=== PATIENT | male | born 1965 | race Caucasian/White ===

== ENCOUNTER 2020-10-19 12:14 | Day surgery (SDC) | payer BC ==
[2020-10-19] MEDS ORDERED: LIDOCAINE HCL 2% 100 MG/5 ML IJ ONE (12:15)
[2020-10-19] MEDS ORDERED: Decadron 4 MG INJ IV ONE (12:15)
[2020-10-19] MEDS ORDERED: DIPRIVAN 200 MG/20 ML IV ONE ×2 (14:13→14:49)
[2020-10-19] MEDS ORDERED: Versed 2 MG/2 ML Injection ONE (14:17)
--- NOTE | 2020-10-19 15:28 | XRAY ---
Indication: Left C3-C5 MBB. Intraoperative fluoroscopy provided for 25 seconds. 3 digital spot images submitted for interpretation demonstrates posterior needle tips projecting over the expected left C3-C5 nerve roots. Correlate with intraoperative findings/report.
[2020-10-19] MEDS ORDERED: Lactated Ringers 1,000 ML IV ONE (15:57)
--- NOTE | 2020-10-19 17:40 | XRAY ---
25 seconds of fluoroscopy was used in surgery for a left C3-C4, C4-C5 MBB.
== END 2020-10-19 15:06 | disposition home or self-care (01) ==
LOC: SDC-PAIN 12:14
PROVIDERS: ATTEND Psychiatry & Neurology Pain Medicine
DX: M47.812 Spondylosis without myelopathy or radiculopathy, cervical region (principal); M19.90 Unspecified osteoarthritis, unspecified site; F32.9 Major depressive disorder, single episode, unspecified; F41.9 Anxiety disorder, unspecified; Z79.899 Other long term (current) drug therapy
CPT/HCPCS: 64490; 64491; 72040; 77002; J1100; J2250; J2704

== ENCOUNTER 2020-12-14 10:49 | Day surgery (SDC) | payer BC ==
[2020-12-14] MEDS ORDERED: BUPIVACAINE 0.5% VIAL IJ ONE (10:50)
[2020-12-14] MEDS ORDERED: Decadron 4 MG INJ IV ONE (10:50)
[2020-12-14] MEDS ORDERED: Lactated Ringers 1,000 ML IV ONE (11:43)
[2020-12-14] MEDS ORDERED: DIPRIVAN 200 MG/20 ML IV ONE (12:28)
--- NOTE | 2020-12-14 13:47 | XRAY ---
54 seconds fluoroscopy time in surgery for left C3-C5 MBB.
--- NOTE | 2020-12-14 13:48 | XRAY ---
Indication: Left C3-C5 MBB. Intraoperative fluoroscopy provided for 54 seconds. 4 digital spot image submitted for interpretation demonstrates posterior needle tips projecting over the expected left C3-C5 nerve roots. Correlate with intraoperative findings/report.
== END 2020-12-14 13:05 | disposition home or self-care (01) ==
LOC: SDC-PAIN 10:49
PROVIDERS: ATTEND Psychiatry & Neurology Pain Medicine
DX: M47.812 Spondylosis without myelopathy or radiculopathy, cervical region (principal); Z79.899 Other long term (current) drug therapy
CPT/HCPCS: 64490; 64491; 72040; 77002; J1100; J2704

== ENCOUNTER 2021-01-11 09:15 | Day surgery (SDC) | payer BC ==
[2021-01-11] MEDS ORDERED: Xylocaine 1% Vial 30 ML PF IJ ONE (09:16)
[2021-01-11] MEDS ORDERED: BUPIVACAINE 0.5% VIAL IJ ONE (09:16)
[2021-01-11] MEDS ORDERED: Decadron 4 MG INJ IV ONE (09:16)
[2021-01-11] MEDS ORDERED: Lactated Ringers 1,000 ML IV ONE (09:46)
[2021-01-11] MEDS ORDERED: Ketamine HCl 50 MG/ML ONE (10:27)
[2021-01-11] MEDS ORDERED: DIPRIVAN 200 MG/20 ML IV ONE ×2 (10:36→10:44)
--- NOTE | 2021-01-11 11:42 | XRAY ---
27 seconds fluoroscopy time in surgery for left C3-C5 RFA.
--- NOTE | 2021-01-11 11:53 | XRAY ---
Indication: Left C3-C5 RFA. Intraoperative fluoroscopy provided for 27 seconds. 2 digital spot image submitted for interpretation demonstrates posterior needle tips projecting over the expected left C3-C4 S1 nerve roots. Correlate with intraoperative findings/report.
== END 2021-01-11 11:05 | disposition home or self-care (01) ==
LOC: SDC-PAIN 09:15
PROVIDERS: ATTEND Psychiatry & Neurology Pain Medicine
DX: M47.812 Spondylosis without myelopathy or radiculopathy, cervical region (principal); Z79.899 Other long term (current) drug therapy
CPT/HCPCS: 64633; 64634; 72040; 77002; J1100; J2001; J2704

== ENCOUNTER 2022-03-14 11:04 | Day surgery (SDC) | payer BC ==
[2022-03-14] MEDS ORDERED: Xylocaine 1% Vial 30 ML PF IJ ONE (11:05)
[2022-03-14] MEDS ORDERED: BUPIVACAINE 0.5% VIAL IJ ONE (11:05)
[2022-03-14] MEDS ORDERED: Decadron 4 MG INJ IV ONE (11:05)
[2022-03-14] MEDS ORDERED: Lactated Ringers 1,000 ML IV ONE (13:09)
[2022-03-14] MEDS ORDERED: DIPRIVAN 200 MG/20 ML IV ONE ×3 (13:13→13:27)
--- NOTE | 2022-03-14 15:04 | XRAY ---
Indication: Left C3-C5 RFA double lesion. Intraoperative fluoroscopy provided for 49 seconds. 9 digital spot images submitted for interpretation demonstrates posterior needle tips projecting over the expected left C3-C5 nerve roots. Correlate with intraoperative findings/report.
--- NOTE | 2022-03-14 15:18 | XRAY ---
49 seconds of fluoroscopy was used in surgery for a left C3-C5 RFA double lesion.
== END 2022-03-14 13:53 | disposition home or self-care (01) ==
LOC: SDC-PAIN 11:04
PROVIDERS: ATTEND Psychiatry & Neurology Pain Medicine
DX: M47.812 Spondylosis without myelopathy or radiculopathy, cervical region (principal); Z79.899 Other long term (current) drug therapy
CPT/HCPCS: 64633; 64634; 72040; 77002; J1100; J2001; J2704

== ENCOUNTER 2022-04-25 12:00 | Day surgery (SDC) | payer BC ==
[2022-04-25] MEDS ORDERED: LIDOCAINE HCL 2% 100 MG/5 ML IJ ONE (12:01)
[2022-04-25] MEDS ORDERED: DIPRIVAN 200 MG/20 ML IV ONE ×2 (13:34→13:51)
[2022-04-25] MEDS ORDERED: Versed 2 MG/2 ML Injection ONE (13:50)
[2022-04-25] MEDS ORDERED: Ketamine HCl 50 MG/ML ONE (13:55)
--- NOTE | 2022-04-25 15:17 | XRAY ---
Indication: Right C3-C5 MBB. Intraoperative fluoroscopy provided for 23 seconds. 3 digital spot images submitted for interpretation demonstrates posterior needle tips projecting over the expected right C3-C5 nerve roots. Correlate with intraoperative findings/report.
[2022-04-25] MEDS ORDERED: Lactated Ringers 1,000 ML IV ONE (16:32)
--- NOTE | 2022-04-25 16:44 | XRAY ---
23 seconds of fluoroscopy was used in surgery for a right C3-C5 MBB.
== END 2022-04-25 14:14 | disposition home or self-care (01) ==
LOC: SDC-PAIN 12:00
PROVIDERS: ATTEND Psychiatry & Neurology Pain Medicine
DX: M47.812 Spondylosis without myelopathy or radiculopathy, cervical region (principal); Z79.899 Other long term (current) drug therapy
CPT/HCPCS: 64490; 64491; 72040; 77002; J2250; J2704

== ENCOUNTER 2022-06-06 09:24 | Day surgery (SDC) | payer BC ==
[2022-06-06] MEDS ORDERED: BUPIVACAINE 0.5% VIAL IJ ONE (09:25)
[2022-06-06] MEDS ORDERED: Decadron 4 MG INJ IV ONE (09:25)
[2022-06-06] MEDS ORDERED: Versed 2 MG/2 ML Injection ONE (11:10)
[2022-06-06] MEDS ORDERED: DIPRIVAN 200 MG/20 ML IV ONE ×2 (12:05→12:11)
[2022-06-06] MEDS ORDERED: Ketamine HCl 50 MG/ML ONE (12:13)
--- NOTE | 2022-06-06 13:17 | XRAY ---
Indication: Right C3-C5 MBB. Intraoperative fluoroscopy provided for 12 seconds. 2 digital spot images submitted for interpretation demonstrates posterior needle tips projecting over the expected right C3-C5 nerve roots. Correlate with intraoperative findings/report.
--- NOTE | 2022-06-06 13:45 | XRAY ---
12 seconds of fluoroscopy was used in surgery for a right C3-C5 MBB.
[2022-06-06] MEDS ORDERED: Lactated Ringers 1,000 ML IV ONE (14:06)
== END 2022-06-06 12:39 | disposition home or self-care (01) ==
LOC: SDC-PAIN 09:24
PROVIDERS: ATTEND Psychiatry & Neurology Pain Medicine
DX: M47.812 Spondylosis without myelopathy or radiculopathy, cervical region (principal)
CPT/HCPCS: 64479; 64480; 72040; 77002; J1100; J2250; J2704

== ENCOUNTER 2022-07-11 14:55 | Day surgery (SDC) | payer BC ==
[2022-07-11] MEDS ORDERED: BUPIVACAINE 0.5% VIAL IJ ONE (14:56)
[2022-07-11] MEDS ORDERED: Decadron 4 MG INJ IV ONE (14:56)
[2022-07-11] MEDS ORDERED: LIDOCAINE HCL 1% 50 MG/5 ML VL PF IJ ONE (14:56)
[2022-07-11] MEDS ORDERED: Versed 2 MG/2 ML Injection ONE (17:03)
[2022-07-11] MEDS ORDERED: DIPRIVAN 200 MG/20 ML IV ONE ×2 (17:39→17:47)
[2022-07-11] MEDS ORDERED: Lactated Ringers 1,000 ML IV ONE (18:13)
--- NOTE | 2022-07-11 20:19 | XRAY ---
Indication: Right C3-C5 RFA. Intraoperative fluoroscopy provided for 53 seconds. 7 digital spot image submitted for interpretation demonstrates posterior needle tips projecting over the expected right C3-C5 nerve roots. Correlate with intraoperative findings/report.
--- NOTE | 2022-07-12 10:56 | XRAY ---
53 seconds of fluoroscopy was used in surgery for a right C3-C5 RFA.
== END 2022-07-11 18:23 | disposition home or self-care (01) ==
LOC: SDC-PAIN 14:55
PROVIDERS: ATTEND Psychiatry & Neurology Pain Medicine
DX: M47.812 Spondylosis without myelopathy or radiculopathy, cervical region (principal); Z79.899 Other long term (current) drug therapy
CPT/HCPCS: 64633; 64634; 72040; 77002; J1100; J2001; J2250; J2704

== ENCOUNTER 2022-09-12 13:27 | Day surgery (SDC) | payer OTHER ==
[2022-09-12] MEDS ORDERED: BUPIVACAINE 0.5% VIAL IJ ONE (13:28)
[2022-09-12] MEDS ORDERED: Depo-Medrol 40 MG/ML IM ONE (13:28)
[2022-09-12] MEDS ORDERED: Versed 2 MG/2 ML Injection ONE (14:50)
[2022-09-12] MEDS ORDERED: DIPRIVAN 200 MG/20 ML IV ONE ×2 (15:32→15:38)
[2022-09-12] MEDS ORDERED: Lactated Ringers 1,000 ML IV ONE (16:43)
--- NOTE | 2022-09-12 17:10 | XRAY ---
Indication: Left shoulder and subacromial bursa injection. Intraoperative fluoroscopy provided for 39 seconds. 2 digital spot image submitted for interpretation demonstrates needle tip projecting over the left glenohumeral joint superiorly. Second needle tip subacromial. Small amount of contrast injected for both needle tip placement. Correlate with intraoperative findings/report.
--- NOTE | 2022-09-12 17:12 | XRAY ---
39 seconds of fluoroscopy was used in surgery for a left intra-articular shoulder and left subacromial bursa injection.
== END 2022-09-12 16:05 | disposition home or self-care (01) ==
LOC: SDC-PAIN 13:27
PROVIDERS: ATTEND Psychiatry & Neurology Pain Medicine
DX: M19.012 Primary osteoarthritis, left shoulder (principal); M75.52 Bursitis of left shoulder; Z79.899 Other long term (current) drug therapy
CPT/HCPCS: 20610; 73030; 77002; J1030; J2250; J2704; Q9966

== ENCOUNTER 2022-11-28 11:59 | Day surgery (SDC) | payer OTHER ==
[2022-11-28] MEDS ORDERED: BUPIVACAINE 0.5% VIAL IJ ONE (12:00)
[2022-11-28] MEDS ORDERED: Depo-Medrol 40 MG/ML IM ONE (12:00)
[2022-11-28] MEDS ORDERED: Versed 2 MG/2 ML Injection ONE (13:20)
[2022-11-28] MEDS ORDERED: DIPRIVAN 200 MG/20 ML IV ONE ×2 (14:15→14:19)
[2022-11-28] MEDS ORDERED: Lactated Ringers 1,000 ML IV ONE (14:43)
--- NOTE | 2022-11-28 18:37 | XRAY ---
Indication: Bilateral SI joint injection. Intraoperative fluoroscopy provided for 15 seconds. 4 digital spot image submitted for interpretation demonstrates posterior needle tip projecting over the expected left and right SI joint. Correlate with intraoperative findings/report.
--- NOTE | 2022-11-28 18:56 | XRAY ---
15 seconds of fluoroscopy was used in surgery for a bilateral sacroiliac joint injection.
== END 2022-11-28 14:30 | disposition home or self-care (01) ==
LOC: SDC-PAIN 11:59
PROVIDERS: ATTEND Psychiatry & Neurology Pain Medicine
DX: M46.1 Sacroiliitis, not elsewhere classified (principal); Z79.899 Other long term (current) drug therapy
CPT/HCPCS: 27096; 72202; 77002; J1030; J2250; J2704; G0260

== ENCOUNTER 2023-01-10 11:49 | Day surgery (SDC) | payer OTHER ==
[2023-01-10] MEDS ORDERED: LIDOCAINE HCL 1% 50 MG/5 ML VL PF IJ ONE ×2 (11:50)
[2023-01-10] MEDS ORDERED: BUPIVACAINE 0.5% VIAL IJ ONE (11:50)
[2023-01-10] MEDS ORDERED: Decadron 4 MG INJ IV ONE (11:50)
[2023-01-10] MEDS ORDERED: Depo-Medrol 40 MG/ML IM ONE (11:50)
[2023-01-10] MEDS ORDERED: Versed 2 MG/2 ML Injection ONE ×2 (12:15→12:40)
[2023-01-10] MEDS ORDERED: DIPRIVAN 200 MG/20 ML IV ONE ×2 (12:40→12:47)
[2023-01-10] MEDS ORDERED: Lactated Ringers 1,000 ML IV ONE (12:58)
[2023-01-10] MEDS ORDERED: MORPHINE SULFATE 2 MG INJ ONE (13:07)
--- NOTE | 2023-01-10 14:05 | XRAY ---
Indication: Bilateral piriformis injection. Intraoperative fluoroscopy provided for 31 seconds. 2 digital spot image submitted for interpretation demonstrates posterior needle tip projecting over the expected left and right piriformis. Small amount of contrast injected for needle tip placement. Correlate with intraoperative findings/report.
--- NOTE | 2023-01-10 14:44 | XRAY ---
31 seconds of fluoroscopy was used in surgery for a bilateral piriformis injection.
== END 2023-01-10 13:26 | disposition home or self-care (01) ==
LOC: SDC-PAIN 11:49
PROVIDERS: ATTEND Psychiatry & Neurology Pain Medicine
DX: M79.18 Myalgia, other site (principal); Z79.899 Other long term (current) drug therapy
CPT/HCPCS: 20553; 72170; 77002; J1030; J1100; J2001; J2250; J2270; J2704; Q9966

== ENCOUNTER 2023-03-06 12:05 | Day surgery (SDC) | payer OTHER ==
[2023-03-06] MEDS ORDERED: Decadron 4 MG INJ IV ONE (12:06)
[2023-03-06] MEDS ORDERED: BUPIVACAINE 0.5% VIAL IJ ONE (12:06)
[2023-03-06] MEDS ORDERED: Depo-Medrol 40 MG/ML IM ONE (12:06)
[2023-03-06] MEDS ORDERED: LIDOCAINE HCL 1% 50 MG/5 ML VL PF IJ ONE (12:06)
[2023-03-06] MEDS ORDERED: Versed 2 MG/2 ML Injection ONE ×2 (13:45→14:27)
[2023-03-06] MEDS ORDERED: DIPRIVAN 200 MG/20 ML IV ONE ×2 (14:27→14:49)
[2023-03-06] MEDS ORDERED: SUBLIMAZE 100 MCG/2 ML ONE (14:36)
[2023-03-06] MEDS ORDERED: Lactated Ringers 1,000 ML IV ONE (15:06)
--- NOTE | 2023-03-06 17:00 | XRAY ---
Indication: Left C3-C5 RFA. Intraoperative fluoroscopy provided for 35 seconds. 5 digital spot image submitted for interpretation demonstrates posterior needle tips projecting over the expected left C3-C5 nerve roots. Correlate with intraoperative findings/report.
--- NOTE | 2023-03-06 17:20 | XRAY ---
35 seconds of fluoroscopy was used in surgery for a left C3-C5 RFA.
== END 2023-03-06 15:07 | disposition home or self-care (01) ==
LOC: SDC-PAIN 12:05
PROVIDERS: ATTEND Psychiatry & Neurology Pain Medicine
DX: M47.812 Spondylosis without myelopathy or radiculopathy, cervical region (principal); Z79.899 Other long term (current) drug therapy
CPT/HCPCS: 20550; 64633; 64634; 72040; 77002; J1030; J1100; J2001; J2250; J2704; J3010

== ENCOUNTER 2023-04-17 09:29 | Day surgery (SDC) | payer OTHER ==
[2023-04-17] MEDS ORDERED: Decadron 4 MG INJ IV ONE (09:30)
[2023-04-17] MEDS ORDERED: Depo-Medrol 40 MG/ML IM ONE (09:30)
[2023-04-17] MEDS ORDERED: XYLOCAINE-MPF 1% 5ML SDV IJ ONE (09:30)
[2023-04-17] MEDS ORDERED: BUPIVACAINE 0.5% VIAL IJ ONE (09:30)
[2023-04-17] MEDS ORDERED: Versed 2 MG/2 ML Injection ONE (10:40)
[2023-04-17] MEDS ORDERED: DIPRIVAN 200 MG/20 ML IV ONE ×2 (11:41→11:43)
[2023-04-17] MEDS ORDERED: MORPHINE SULFATE 2 MG INJ ONE (12:08)
[2023-04-17] MEDS ORDERED: Lactated Ringers 1,000 ML IV ONE (14:59)
--- NOTE | 2023-04-17 20:46 | XRAY ---
Indication: Bilateral SI joint and bilateral piriformis injection. Intraoperative fluoroscopy provided for 47 seconds. 6 digital spot image submitted for interpretation demonstrates posterior needle tip projecting over the expected left and right SI joint. Additional posterior needle tip projects over the left and right piriformis with small amount of contrast injected for both needle tip placement. Correlate with intraoperative findings/report.
--- NOTE | 2023-04-17 21:43 | XRAY ---
47 seconds of fluoroscopy was used in surgery for a bilateral sacroiliac joint and piriformis injection.
== END 2023-04-17 12:28 | disposition home or self-care (01) ==
LOC: SDC-PAIN 09:29
PROVIDERS: ATTEND Psychiatry & Neurology Pain Medicine
DX: M46.1 Sacroiliitis, not elsewhere classified (principal); M79.18 Myalgia, other site
CPT/HCPCS: 20553; 27096; 72202; 77002; J1030; J1100; J2250; J2270; J2704; Q9966; G0260

== ENCOUNTER 2023-10-23 14:46 | Day surgery (SDC) | payer BC ==
[2023-10-23] MEDS ORDERED: Decadron 4 MG INJ IV ONE (14:47)
[2023-10-23] MEDS ORDERED: Sodium Chloride 0.9(Preservative Free) 10 ML IJ ONE (14:47)
[2023-10-23] MEDS ORDERED: LIDOCAINE HCL 1% 50 MG/5 ML VL PF IJ ONE (14:47)
[2023-10-23] MEDS ORDERED: Lactated Ringers 1,000 ML IV ONE (16:25)
--- NOTE | 2023-10-23 22:15 | XRAY ---
Indication: Cervical RUSSEL. Intraoperative fluoroscopy provided for 45 seconds. 8 digital spot images submitted for interpretation demonstrates needle tip posterior to cervicothoracic junction. Small amount of contrast injected for needle tip placement. Correlate with intraoperative findings/report.
--- NOTE | 2023-10-24 07:18 | XRAY ---
45 seconds of fluoroscopy were used in surgery for a cervical RUSSEL.
== END 2023-10-23 17:09 | disposition home or self-care (01) ==
LOC: SDC-PAIN 14:46
PROVIDERS: ATTEND Psychiatry & Neurology Pain Medicine
DX: M54.12 Radiculopathy, cervical region (principal)
CPT/HCPCS: 62321; 72040; 77003; J1100; J2001; Q9966

== ENCOUNTER 2023-12-11 12:13 | Day surgery (SDC) | payer BC ==
[2023-12-11] MEDS ORDERED: LIDOCAINE HCL 1% 50 MG/5 ML VL PF IJ ONE (12:14)
[2023-12-11] MEDS ORDERED: Depo-Medrol 40 MG/ML IM ONE (12:14)
[2023-12-11] MEDS ORDERED: BUPIVACAINE 0.5% VIAL IJ ONE (12:14)
[2023-12-11] MEDS ORDERED: Decadron 4 MG INJ IV ONE (12:14)
[2023-12-11] MEDS ORDERED: DIPRIVAN 200 MG/20 ML IV ONE ×3 (13:47→14:01)
[2023-12-11] MEDS ORDERED: Lactated Ringers 1,000 ML IV ONE (13:50)
--- NOTE | 2023-12-11 15:02 | XRAY ---
Indication: Bilateral SI joint and bilateral piriformis injection. Intraoperative fluoroscopy provided for 39 seconds. 4 digital spot image submitted for interpretation demonstrates posterior needle tips projecting over the expected left/right SI joint and left/right piriformis. Small amount of contrast injected for all needle tip placement. Correlate with intraoperative findings/report.
--- NOTE | 2023-12-11 16:52 | XRAY ---
39 seconds of fluoroscopy was used in surgery for a bilateral sacroiliac joint and piriformis injection.
== END 2023-12-11 14:15 | disposition home or self-care (01) ==
LOC: SDC-PAIN 12:13
PROVIDERS: ATTEND Psychiatry & Neurology Pain Medicine
DX: M46.1 Sacroiliitis, not elsewhere classified (principal)
CPT/HCPCS: 20552; 27096; 72202; 77002; J1100; J2001; J2704; Q9966; G0260

== ENCOUNTER 2024-03-04 13:40 | Day surgery (SDC) | payer BC ==
[2024-03-04] MEDS ORDERED: Decadron 4 MG INJ IV ONE (13:41)
[2024-03-04] MEDS ORDERED: Sodium Chloride 0.9(Preservative Free) 10 ML IJ ONE (13:41)
[2024-03-04] MEDS ORDERED: DIPRIVAN 200 MG/20 ML IV ONE ×2 (15:36→15:43)
[2024-03-04] MEDS ORDERED: MORPHINE SULFATE 2 MG INJ ONE ×2 (16:09→16:24)
--- NOTE | 2024-03-04 16:50 | XRAY ---
Indication: Left L4-S1 transforaminal RUSSEL. Intraoperative fluoroscopy provided for 1 minute 11 seconds. 10 digital spot image submitted for interpretation demonstrates posterior needle tips projecting over the expected left L4 and L5 nerve roots. Small amount of contrast injected for needle tip placement. Correlate with intraoperative findings/report.
--- NOTE | 2024-03-04 16:56 | XRAY ---
One minute and 11 seconds of fluoroscopy was used in surgery for a left L4-S1 transforaminal RUSSEL.
== END 2024-03-04 16:45 | disposition home or self-care (01) ==
LOC: SDC-PAIN 13:40
PROVIDERS: ATTEND Psychiatry & Neurology Pain Medicine
DX: M54.16 Radiculopathy, lumbar region (principal)
CPT/HCPCS: 64483; 64484; 72100; 77003; J1100; J2270; J2704; Q9966

== ENCOUNTER 2024-06-03 13:42 | Day surgery (SDC) | payer MEDICARE ==
[2024-06-03] MEDS ORDERED: LIDOCAINE HCL 1% AMPUL 5 ML IJ ONE (13:43)
[2024-06-03] MEDS ORDERED: Versed 2 MG/2 ML Injection ONE (14:28)
[2024-06-03] MEDS ORDERED: propofoL IV ONE ×2 (15:37→15:43)
[2024-06-03] MEDS ORDERED: SUBLIMAZE 100 MCG/2 ML ONE (15:45)
--- NOTE | 2024-06-03 16:55 | XRAY ---
Indication: Left L5-S1 foramina nerve block. Intraoperative fluoroscopy provided for 22 seconds. 2 digital spot image submitted for interpretation demonstrates posterior needle tips projecting over the expected left L5 nerve root. Small amount of contrast injected for needle tip placement. Correlate with intraoperative findings/report.
--- NOTE | 2024-06-03 17:20 | XRAY ---
22 seconds of fluoroscopy were used in surgery for a left L5-S1 foramen nerve root block.
== END 2024-06-03 16:25 | disposition home or self-care (01) ==
LOC: SDC-PAIN 13:42
PROVIDERS: ATTEND Psychiatry & Neurology Pain Medicine
DX: M54.16 Radiculopathy, lumbar region (principal)
CPT/HCPCS: 64483; 72100; 77002; J2250; J2704; J3010; Q9966

== ENCOUNTER 2024-06-24 14:12 | Day surgery (SDC) | payer MEDICARE ==
[~2024-06-24 14:12] MED LIST: Lactated Ringers 500 ML IV ONE
[2024-06-24] MEDS ORDERED: Versed 2 MG/2 ML Injection ONE ×2 (14:37→15:27)
[2024-06-24] MEDS ORDERED: propofoL IV ONE ×3 (15:24→15:39)
--- NOTE | 2024-06-24 16:52 | XRAY ---
Indication: Right C3-C5 RFA. Intraoperative fluoroscopy provided for 35 seconds. 4 digital spot image submitted for interpretation demonstrates posterior needle tips projecting over expected right C3-C5 nerve roots. Correlate with intraoperative findings/report.
--- NOTE | 2024-06-24 16:54 | XRAY ---
35 seconds of fluoroscopy was used in surgery for a right C3-C5 RFA.
== END 2024-06-24 16:11 | disposition home or self-care (01) ==
LOC: SDC-PAIN 14:12
PROVIDERS: ATTEND Psychiatry & Neurology Pain Medicine
DX: M47.812 Spondylosis without myelopathy or radiculopathy, cervical region (principal)
CPT/HCPCS: 72040; 77002; J2250; J2704

== ENCOUNTER 2024-08-26 13:36 | Day surgery (SDC) | payer MEDICARE ==
[2024-08-26] MEDS ORDERED: Depo-Medrol 40 MG/ML IM ONE (13:37)
[2024-08-26] MEDS ORDERED: BUPIVACAINE 0.5% VIAL IJ ONE (13:37)
[2024-08-26] MEDS ORDERED: Versed 2 MG/2 ML Injection ONE ×2 (14:43→15:58)
[2024-08-26] MEDS ORDERED: propofoL IV ONE (15:58)
--- NOTE | 2024-08-26 16:50 | XRAY ---
13 seconds of fluoroscopy was used in surgery for a left intra-articular hip and greater trochanteric bursa injection.
--- NOTE | 2024-08-26 16:50 | XRAY ---
Indication: Left hip and greater trochanter bursa injection. Intraoperative fluoroscopy provided for 13 seconds. 2 digital spot image submitted for interpretation demonstrates needle tip lateral to left femur neck. Second needle tip lateral to greater trochanter. Small amount of contrast injected for both needle tip placement. Correlate with intraoperative findings/report.
== END 2024-08-26 16:25 | disposition home or self-care (01) ==
LOC: SDC-PAIN 13:36
PROVIDERS: ATTEND Psychiatry & Neurology Pain Medicine
DX: M16.12 Unilateral primary osteoarthritis, left hip (principal)
CPT/HCPCS: 20610; 73502; 77002; J2250; J2704; Q9966

== ENCOUNTER 2024-12-16 12:24 | Day surgery (SDC) | payer MEDICARE ==
[2024-12-16] MEDS ORDERED: XYLOCAINE 1% HCL 20 ML MDV IJ ONE (12:25)
[2024-12-16] MEDS ORDERED: Marcaine Mpf 0.5% Vial 30 Ml IJ ONE (12:25)
[2024-12-16] MEDS ORDERED: Depo-Medrol 40 MG/ML IM ONE (12:25)
[2024-12-16] MEDS ORDERED: Versed 2 MG/2 ML Injection ONE ×2 (13:08→14:22)
[2024-12-16] MEDS ORDERED: propofoL IV ONE ×2 (14:20→14:27)
[2024-12-16] MEDS ORDERED: Lactated Ringers 1,000 ML IV ONE (14:46)
--- NOTE | 2024-12-16 16:54 | XRAY ---
Indication: Left L4-S1 RFA. Intraoperative fluoroscopy provided for 14 seconds. 3 digital spot image submitted for interpretation demonstrates posterior needle tips projecting over expected left L4-S1 nerve roots. Correlate with intraoperative findings/report.
--- NOTE | 2024-12-17 09:53 | XRAY ---
14 seconds of fluoroscopy was used in surgery for a left L4-S1 RFA.
== END 2024-12-16 14:52 | disposition home or self-care (01) ==
LOC: SDC-PAIN 12:24
PROVIDERS: ATTEND Psychiatry & Neurology Pain Medicine
DX: M47.817 Spondylosis without myelopathy or radiculopathy, lumbosacral region (principal)

== ENCOUNTER 2025-01-20 14:53 | Day surgery (SDC) | payer MEDICARE ==
[2025-01-20] MEDS ORDERED: LIDOCAINE HCL 1% 50 MG/5 ML VL IJ ONE (14:54)
[2025-01-20] MEDS ORDERED: Sodium Chloride 0.9(Preservative Free) 10 ML IJ ONE (14:54)
[2025-01-20] MEDS ORDERED: Lactated Ringers 1,000 ML IV ONE (16:19)
--- NOTE | 2025-01-20 16:46 | XRAY ---
Indication: Cervical RUSSEL. Intraoperative fluoroscopy provided for 51 seconds. 7 digital spot images submitted for interpretation demonstrates posterior needle tip projecting posterior to cervicothoracic junction. Small amount of contrast injected for needle tip placement. Correlate with intraoperative findings/report.
--- NOTE | 2025-01-20 16:55 | XRAY ---
51 seconds of fluoroscopy was used in surgery for a cervical RUSSEL.
== END 2025-01-20 15:55 | disposition home or self-care (01) ==
LOC: SDC-PAIN 14:53
PROVIDERS: ATTEND Psychiatry & Neurology Pain Medicine
DX: M54.12 Radiculopathy, cervical region (principal)